=== PATIENT | male | born 1990 | race Caucasian/White ===

== ENCOUNTER 2017-07-13 14:17 | Emergency (ER) | payer SELFPAY ==
[~2017-07-13] VITALS: Ht 165.1 cm; Wt 81.6 kg
[2017-07-13] MEDS ORDERED: PREDNISONE10 MG PO (14:28)
[2017-07-13] MEDS ORDERED: BENADRYL ALLERG25 M5 PO (14:28)
[2017-07-13] MEDS ORDERED: TAGAMET HB200 M1 PO (14:28)
== END 2017-07-13 14:33 | disposition home or self-care (01) ==
LOC: ED 14:17
DX: L23.7 Allergic contact dermatitis due to plants, except food (principal); F17.200 Nicotine dependence, unspecified, uncomplicated